=== PATIENT | female | born 1970 | race Asian ===

== ENCOUNTER 2021-05-04 13:17 | Observation (INO) | payer SELFPAY ==
[~2021-05-04] VITALS: Ht 154.9 cm; Wt 66.0 kg
--- NOTE | 2021-05-04 13:25 | NUR ---
BROUGHT TO THE TREATMENT AREA WITH SOB, BY WHEELCHAIR, RESPIRATORY THERAPY PAGED
[2021-05-04 13:46] LABS: HEMATOCRIT 40.3 % (37.0-47.0); HEMOGLOBIN 12.5 g/dl (12.0-16.0); IMMATURE GRANULOCYTES 0.2 % (0.0-5.0); MEAN CORPUSCULAR HGB 24.8 pG CALC (26.0-32.0); NEUT# 4.69 thou/uL (2.00-7.15); RED BLOOD COUNT 5.04 mill/uL (4.20-5.60); RED CELL DISTRI WIDTH 13.6 % (11.5-15.5)
[2021-05-04 14:04] LABS: ALBUMIN 4.2 g/dL (3.2-5.0); ALKALINE PHOSPHATASE 75 u/l (38-126); ANION GAP 11 (6-22 (CALC)); BILIRUBIN, TOTAL 0.4 mg/dL (0.0-1.4); BUN 12 mg/dL (7-17); BUN/CREATININE RATIO 16 (12-20 (CALC)); CARBON DIOXIDE 26 mmol/l (22-30); CHLORIDE 106 mmol/l (95-108); CREATININE 0.7 mg/dL (0.5-1.0); GFR > 60 ML/MIN (>=60 (CALC)); GFR FOR AFR.AMER. > 60 ML/MIN (>=60 (CALC)); POTASSIUM 3.4 mmol/l (3.5-5.1); SGOT/AST 33 u/l (14-36); SODIUM 139 mmol/l (137-146); TOTAL PROTEIN 7.8 g/dL (6.3-8.2)
--- NOTE | 2021-05-04 14:49 | NUR ---
ALERT IMPROVED RESPIRATORY RATE AND EFFORT, STATES FEELS A LITTLE BETTER
[2021-05-04] MEDS ORDERED: SINGULAIR10 MG PO (14:55)
[2021-05-04] MEDS ORDERED: CETIRIZINE10 MG PO (14:56)
[2021-05-04] MEDS ORDERED: NASONEX50 MCG/ACT (14:56)
--- NOTE | 2021-05-04 16:15 | NUR ---
CALLED MED/SURG WILL HOLD ADMISSION AT THIS CURRENT TIME PER MS NURSE REQUEST AWAITING CALL FOR REPORT AT THIS TIME, PATIENT IS COMFORTABLE, EATING NUTRAGRAIN BAR AND DRINKING WATER AT THIS TIME
--- NOTE | 2021-05-04 16:51 | NUR ---
REPORT REC FROM JACQUELINE LANG
--- NOTE | 2021-05-04 17:30 | NUR ---
RESTING IN ROOM APPEARS COMFORTABLE
--- NOTE | 2021-05-04 17:54 | NUR ---
Admission Note Report Given to: ERICA Transported by: Y Wheelchair Stretcher Transported with: Y Nurse Transporter Patent IV [id number] Y Hide And Skin Classer Location: ICU Y [facility]
--- NOTE | 2021-05-04 18:02 | NUR ---
PT ARRIVED VIA WC TO ROOM IN STABLE CONDITION ACCOMPANIED BY JACQUELINE LANG. PT A&O X4. COARSE WITH EXPIRATORY WHEEZING HEARD THROUGHOUT ALL LUNG BASES. PT REPORTS ONSET OF SYMPTOMS THAT STARTED 2 DAYS AGO, WORSENING TODAY. DOES REPORT A HX OF ASTHMA, LAST EXACERBATION 6 YEARS AGO, DENIES THE USE OF MEDICATION AT HOME. TRACE EDEMA NOTED TO BLE. ACTIVE BOWEL SOUNDS X4 QUADRANTS, LAST BOWEL MOVEMENT REPORTED TWO DAYS AGO, STATES SHE HAS ISSUES WITH CONSTIPATION BUT DENIES ANY USE OF STOOL SOFTENERS. #20 RAC HEALTHY AND PATENT. ORIENTED PT TO ROOM. CALL LIGHT LEFT WITHIN REACH. CALL LIGHT WITHIN REACH.
[2021-05-04 19:02] VITALS: BP 117/81
--- NOTE | 2021-05-04 20:00 | NUR ---
PT ARRIVED TO THE FLOOR AT APPROXIMATLY 1802. REPORT RECEIVED FROM DAY SHIFT NURSE. ASSUMED CARE AT APPROXIMATLY 1900. ADMISSION COMPLETED, PLEASE SEE DOCUMENTATION. LUNGS WITH WHEEZING THROUGHOUT, PT REPORTS LUNGS FEEL TIGHT WHEN BREATHING. VS WNL. NO COMPLAINTS VOICED AT THIS TIME. SAFETY PRECAUTIONS IN PLACE, BED IN LOWEST POSITION, CALL LIGHT WITHIN REACH. WILL MONITOR
[2021-05-05] VITALS: BP 133/85
--- NOTE | 2021-05-05 00:06 | NUR ---
PT RESTING QUIETLY IN BED, COUGH CONTINUES. NO COMPLAINTS VOICED, NO S/S OF DISTRESS NOTED. WILL MONITOR
[2021-05-05 04:00] VITALS: BP 110/72
--- NOTE | 2021-05-05 04:17 | NUR ---
PT RESTING QUIETLY IN BED WITH HER EYES CLOSED. NO COMPLAINTS VOICED. BREATHING EVEN AND UNLABORED. WHEEZING THROUGHOUT CONTINUES, PT IS RECEIVING Q4HR DUONEB WHILE AWAKE. SAFETY PRECAUTIONS IN PLACE, WILL MONITOR
--- NOTE | 2021-05-05 06:49 | NUR ---
pt resting in bed. nad. vss. exp whh audible. bbs=/whz/dim. heel sander to monitor.
[2021-05-05 07:00] VITALS: BP 117/68
--- NOTE | 2021-05-05 07:00 | NUR ---
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 LUNG [place] ARE COARSE AND NOTABLE WHEEZING NOTED. PATIENT DOES HAVE A PRODUCTIVE COUGH WITH THICK WHITE SPUTUM NOTED. PATIENT DENIES ANY PAIN AT THIS TIME BUT DOES STATE THAT SHE HAS NOT HAD A BOWEL MOVEMENT IN A COUPLE DAYS. PATEINT GIVEN 30ML OF MILK OF MAG AND PRUNE JUICE AT THIS TIME. PATIENT DENIES ANY OTHER NEEDS. THERE IS SOME SLIGHT LOWER LEG (TRACE) EDEMA NOTED BILATERAL. SIDERAILS ARE UP X 2 CALL LIGHT IS WITHIN REACH. TELE MONITOR ON AND WILL BE MONITORED BY ED.
[2021-05-05] MEDS ORDERED: VENTOLIN HFA108 MCG IN (09:54)
[2021-05-05] MEDS ORDERED: ADVAIR DISK1 IN (09:54)
[2021-05-05] MEDS ORDERED: PREDNISONE50 MG PO ×2 (09:55→10:51)
--- NOTE | 2021-05-05 10:02 | NUR ---
IN TO SEE PATIENT AT THIS TIME.
--- NOTE | 2021-05-05 10:30 | NUR ---
PATIENT D/C AT THIS TIME. PATIENT VERBALIZED UNDERSTANDING OF DC INSTRUCTIONS AND REDEMONSTRATED HOW TO USE ADVAIR INHALER. ED CALLED TO ADVISE OF DC AND TELEMONITOR WAS REMOVED AT THIS TIME. IV REMOVED AT THIS TIME WELL. PATIENT ADVISED TO INFORM NURSE WHEN FAMILY ARRIVES FOR D/C.
--- NOTE | 2021-05-05 10:45 | NUR ---
Discharge instructions given. Patient verbalizes understanding of same. Discharged in stable condition via Wheelchair to Home with family. All belongings sent with pt.
== END 2021-05-05 10:45 | disposition home or self-care (01) | DRG 203 ==
LOC: ED 13:17 → ED-I 15:15 → ED 15:26 → MS2 15:27
PROVIDERS: Family Medicine; ADMIT Internal Medicine; ATTEND Internal Medicine
DX: J45.901 Unspecified asthma with (acute) exacerbation (principal); Z20.822 Contact with and (suspected) exposure to COVID-19
CPT/HCPCS: G0378; J1650; J3475